=== PATIENT | female | born 1965 | race Caucasian/White ===

== ENCOUNTER → 2021-12-23 12:47 | Outpatient (BNVA) | payer OTHER, SELFPAY | PROVIDERS: Referring Provider Physician Assistant; Visit Provider Nurse Practitioner | DX: G40.909 Epilepsy, unspecified, not intractable, without status epilepticus (principal) | CPT/HCPCS: 99204 ==

== ENCOUNTER → 2022-06-10 10:29 | Outpatient (BNVA) | payer OTHER, SELFPAY | PROVIDERS: PCP Physician Assistant; Visit Provider Nurse Practitioner | DX: R56.9 Unspecified convulsions (principal); F43.10 Post-traumatic stress disorder, unspecified | CPT/HCPCS: 99213 ==